=== PATIENT | female | born 1990 | race Caucasian/White ===

== ENCOUNTER 2021-11-09 03:52 | Inpatient (IN) | payer MEDICAID ==
[~2021-11-09] VITALS: Ht 152.4 cm; Wt 63.6 kg
[2021-11-09] VITALS (10 sets, daily range): BP systolic 109–117; BP diastolic 56–88; PULSE 84–108; TEMP 98.2–98.9
[2021-11-09 04:17] LABS: BASO % 0.2 % (0.0-2.0); GRAN # 14.7 K/mm3 (1.4-6.5); GRAN % 86.6 % (42.2-75.2); LYMPH # 0.8 K/mm3 (1.2-3.4); LYMPH % 4.7 % (20.0-51.0); MEAN CELL VOLUME 88 fl (80.0-100.0); MEAN CORPUSCULAR HGB CONC 35 g/dl (33.0-37.0); MEAN PLATELET VOLUME 7.8 fl (7.4-10.4); MONO # 1.3 K/mm3 (0.1-0.6); MONO % 7.8 % (1.7-9.3); PLATELET COUNT 163 K/mm3 (130-400); RED BLOOD COUNT 2.95 M/mm3 (4.10-5.30)
[2021-11-09 04:19] LABS: HEMATOCRIT 25.8 % (37.0-47.0); HEMOGLOBIN 9.1 g/dl (12.5-16.0); MEAN CORPUSCULAR HEMOGLOBIN 31 pg (27-31)
[2021-11-09 04:32] LABS: ALBUMIN 2.8 gm/dL (3.5-5.0); BILIRUBIN,TOTAL 0.6 mg/dL (0.2-1.2); CALCIUM 8.1 mg/dL (8.4-10.2); CREATININE, serum 0.62 mg/dL (0.57-1.11); POTASSIUM 4.3 mmol/L (3.5-4.5); TOTAL PROTEIN 5.5 gm/dL (6.2-8.1)
[2021-11-09 04:43] LABS: INR 1.1 (0.8-3.0); PROTHROMBIN TIME 12.3 SECONDS (9.7-12.8)
[2021-11-09 04:45] LABS: PARTIAL THROMBOPLASTIN TIME 27.2 SECONDS (26.0-37.0)
[2021-11-09 07:45] LABS: MEAN CELL VOLUME 86 fl (80.0-100.0); MEAN CORPUSCULAR HGB CONC 34 g/dl (33.0-37.0); MEAN PLATELET VOLUME 8.3 fl (7.4-10.4); PLATELET COUNT 136 K/mm3 (130-400); RED BLOOD COUNT 3.87 M/mm3 (4.10-5.30); REDCELL DISTRIBUTION WIDTH-CV 13.5 % (11.5-14.5)
[2021-11-09 07:52] LABS: HEMATOCRIT 33.2 % (37.0-47.0); HEMOGLOBIN 11.4 g/dl (12.5-16.0); MEAN CORPUSCULAR HEMOGLOBIN 29 pg (27-31)
--- NOTE | 2021-11-09 08:10 | NUR ---
0810 - PATIENT ARRIVED TO ROOM 222 VIA BED ACCOMPANIED BY SECURITY REPRESENTATIVE, BEN GARCIA. REPORT RECEIVED. PLAN OF CARE REVIEWED. PATIENT PLACED ON MONITOR FOR RECOVERY VS. PATIENT RESTING COMFORTABLY IN BED. LR IVF RUNNING. VILLALOBOS IN PLACE. WATER PROVIDED. CARE ONGOING.
[2021-11-09 08:24] LABS: BAND 12 % (0-10); LYMPHOCYTE 2 % (20.0-51.0); NEUTROPHILS 82 % (42.0-75.2); PLATELET ESTIMATE NORMAL (NORMAL)
--- NOTE | 2021-11-09 09:25 | NUR ---
Initial visit; Patient just brought back to her room. Director Of Event Marketing left card informing patient who was heavily sedated that Director Of Event Marketing is available to her and is wishing her God's blessings.
[2021-11-09 10:13] LABS: HEMATOCRIT 28.1 % (37.0-47.0); HEMOGLOBIN 9.8 g/dl (12.5-16.0)
[2021-11-09] MEDS ORDERED: SEROQUEL400 MG PO (12:37)
[2021-11-09] MEDS ORDERED: LAMICTAL 100MG100 MG PO (12:38)
[2021-11-09] MEDS ORDERED: WELLBUTRIN XL300 M1 PO (12:38)
[2021-11-09] MEDS ORDERED: LAMICTAL200 MG PO (12:38)
[2021-11-09 16:11] LABS: HEMATOCRIT 27.5 % (37.0-47.0); HEMOGLOBIN 9.7 g/dl (12.5-16.0)
--- NOTE | 2021-11-09 17:30 | NUR ---
1910 - PATIENT AMBULATED IN HALLWAY WITH RN.
[2021-11-10 00:44] VITALS: BP 114/60; PULSE 121; TEMP 98.6
[2021-11-10 03:51] VITALS: BP 105/62; PULSE 108; TEMP 98.7
[2021-11-10 05:53] LABS: HEMATOCRIT 23.6 % (37.0-47.0); HEMOGLOBIN 8.1 g/dl (12.5-16.0)
[2021-11-10] MEDS ORDERED: IBU600 MG PO (07:16)
[2021-11-10] MEDS ORDERED: PERCOCET 325 MG1 TA2 PO (07:16)
[2021-11-10 08:00] VITALS: BP 118/68; PULSE 75; TEMP 97.8
[2021-11-10 13:23] LABS: HEMATOCRIT 27.1 % (37.0-47.0); HEMOGLOBIN 9.2 g/dl (12.5-16.0)
--- NOTE | 2021-11-10 14:00 | NUR ---
Discharge instructions and follow up care reviewed with pt and at the bedside. Both verbalized an understanding, agreed with the plan and states no questions or concerns at this time.
== END 2021-11-10 14:15 | disposition home or self-care (01) | DRG 742 ==
LOC: COL.ER 03:52 → OB 04:48 → SDCO 04:48 → OB 06:47
PROVIDERS: Nurse Anesthetist, Certified Registered; Obstetrics & Gynecology; ADMIT Obstetrics & Gynecology
PROC: 0UT10ZZ Resection of Left Ovary, Open Approach (ICD-10-PCS; principal; 2021-11-09 05:00)
PROC: 0WCG4ZZ Extirpation of Matter from Peritoneal Cavity, Percutaneous Endoscopic Approach (ICD-10-PCS; 2021-11-09 05:00)
PROC: 0WJG4ZZ Inspection of Peritoneal Cavity, Percutaneous Endoscopic Approach (ICD-10-PCS; 2021-11-09 05:00)
DX: N83.202 Unspecified ovarian cyst, left side (principal); N99.820 Postprocedural hemorrhage of a genitourinary system organ or structure following a genitourinary system procedure; I95.9 Hypotension, unspecified; N93.9 Abnormal uterine and vaginal bleeding, unspecified; R00.0 Tachycardia, unspecified; Y83.8 Other surgical procedures as the cause of abnormal reaction of the patient, or of later complication, without mention of misadventure at the time of the procedure; D64.9 Anemia, unspecified; Z53.31 Laparoscopic surgical procedure converted to open procedure; Y92.89 Other specified places as the place of occurrence of the external cause
CPT/HCPCS: A4314; J0330; J0690; J1100; J1170; J2370; J2405; J2704; J3010; J7120; P9016